=== PATIENT | male | born 1985 | race African-American/Black ===

== ENCOUNTER 2019-01-11 11:38 | Emergency (ER) | payer OTHER ==
[2019-01-11 12:27] LABS: Absolute Lymphocytes (CBC) 2.5 K/uL (0.7-4.9); Absolute Monocytes 0.5 K/uL (0.1-1.3); Basophils % 0.9 % (0-1.3); Eosinophils % 2.1 % (0-4.4); Hematocrit 42.2 % (39.6-49.0); Lymphocytes % 40.6 % (15.3-44.8); MPV 9.1 fL (7.6-11.3); RBC Red Blood Cell Count 5.13 M/uL (4.33-5.43)
[2019-01-11 12:28] LABS: Protime INR 1.06
[2019-01-11 12:41] LABS: ALT/SGPT 33 U/L (12-78); AST/SGOT 19 U/L (15-37); Albumin 3.1 g/dL (3.4-5.0); Alkaline Phosphatase 66 U/L (45-117); BUN Blood Urea Nitrogen 10 mg/dL (7-18); Bicarbonate 27 mmol/L (21-32); Bilirubin Direct 0.1 mg/dL (0-0.2); Bilirubin Total 0.3 mg/dL (0.2-1.0); Glucose Level 85 mg/dL (74-106); NT PRO-BNP 14 pg/mL (<125); Protein, Total 7.8 g/dL (6.4-8.2); Sodium Level 142 mmol/L (136-145); Troponin (Emerg Dept Use Only) < 0.02 ng/mL (0.0-0.045)
--- NOTE | 2019-01-11 12:51 | RAD REPORT ---
EXAM DESCRIPTION: RAD - Chest Single View - 01/11/2019 12:44 pm CLINICAL HISTORY: Chest pain COMPARISON: None. TECHNIQUE: AP portable chest image was obtained 1229 hours . FINDINGS: Lungs are clear. Heart and vasculature are normal. No measurable pleural effusion and no p neumothorax. No acute bony abnormality seen. No acute aortic findings suspected. Large body habitus a nd portable technique accentuate chest findings. IMPRESSION: No acute cardiopulmonary process.
--- NOTE | 2019-01-11 16:22 | ER ---
Nurse's Notes [facility] Name: Karl Adam Age: 33 yrs Sex: Male : 1985 Arrival Date: 01/11/2019 Time: 11:43 Bed 2 Private MD: Charles Castro T Diagnosis: Chest pain on breathing Presentation: 01/11 11:45 Presenting complaint: Patient states: intermittent chest pain that began today. Pt aa5 states "I was walking when the pain started". Transition of care: patient was not received from another setting of care. Onset of symptoms was January 11, 2019. Risk Assessment: Do you want to hurt yourself or someone else? Patient reports no desire to harm self or others. Initial Sepsis Screen: Does the patient meet any 2 criteria? No. Patient's initial sepsis screen is negative. Does the patient have a suspected source of infection? No. Patient's initial sepsis screen is negative. Care prior to arrival: None. 11:45 Method Of Arrival: Ambulatory aa5 11:45 Acuity: YURI 3 aa5 Historical: - Allergies: 11:46 No Known Allergies; aa5 - Home Meds: 11:46 None [Active]; aa5 - PMHx: 11:46 None; aa5 - PSHx: 11:46 None; aa5 - Immunization history:: Adult Immunizations unknown. - Social history:: Smoking status: Patient/guardian denies using tobacco. - Ebola Screening: : No symptoms or risks identified at this time. - Family history:: not pertinent. Screenin:01 Abuse screen: Denies threats or abuse. Nutritional screening: No deficits noted. tw2 Tuberculosis screening: No symptoms or risk factors identified. Fall Risk None identified. Assessment: 11:50 General: Appears in no apparent distress. obese, Behavior is calm, cooperative, tw2 appropriate for age. Pain: Denies pain. Pain does not radiate. Pain began 2-3 days ago. Neuro: Level of Consciousness is awake, alert, obeys commands, Oriented to person, place, time, situation. Cardiovascular: Heart tones S1 S2 Patient's skin is warm and dry. Respiratory: Airway is patent Respiratory effort is even, unlabored, Respiratory pattern is regular, symmetrical, Breath sounds are clear bilaterally. GI: No signs and/or symptoms were reported involving the gastrointestinal system. Abdomen is round non-distended, obese, Bowel sounds present X 4 quads. : No signs and/or symptoms were reported regarding the genitourinary system. EENT: No signs and/or symptoms were reported regarding the EENT system. Derm: No signs and/or symptoms reported regarding the dermatologic system. Musculoskeletal: Range of motion: intact in all extremities. 11:57 Reassessment: Dr. Miller at bedside at this time. tw2 12:30 Reassessment: Patient appears in no apparent distress at this time. No changes from tw2 previously documented assessment. Patient and/or family updated on plan of care and expected duration. Pain level reassessed. Patient is alert, oriented x 3, equal unlabored respirations, skin warm/dry/pink. 14:00 Reassessment: Patient appears in no apparent distress at this time. No changes from tw2 previously documented assessment. Patient and/or family updated on plan of care and expected duration. Pain level reassessed. Patient is alert, oriented x 3, equal unlabored respirations, skin warm/dry/pink. 15:07 Reassessment: Patient appears in no apparent distress at this time. No changes from tw2 previously documented assessment. Patient and/or family updated on plan of care and expected duration. Pain level reassessed. Patient is alert, oriented x 3, equal unlabored respirations, skin warm/dry/pink. 16:28 Reassessment: Patient appears in no apparent distress at this time. No changes from tw2 previously documented assessment. Patient and/or family updated on plan of care and expected duration. Pain level reassessed. Patient is alert, oriented x 3, equal unlabored respirations, skin warm/dry/pink. Vital Signs: 11:46 BP 149 / 87; Pulse 77; Resp 16 S; Temp 98.5(O); Pulse Ox 96% ; Weight 158.76 kg (R); aa5 Height 6 ft. 2 in. (187.96 cm) (R); Pain 3/10; 12:30 BP 111 / 48 Supine; Pulse 59; Resp 18; Pulse Ox 96% ; tw2 13:51 BP 117 / 58; Pulse 65; Resp 18; Pulse Ox 98% on R/A; tw2 15:06 BP 111 / 98; Pulse 64; Resp 18; Pulse Ox 97% on R/A; tw2 16:28 BP 128 / 70; Pulse 63; Resp 17; Pulse Ox 99% on R/A; tw2 11:46 Body Mass Index 44.94 (158.76 kg, 187.96 cm) aa5 ED Course: 11:43 Patient arrived in ED. mr 11:44 Charles Castro MD is Private Physician. mr 11:45 Arm band placed on. aa5 11:46 Triage completed. aa5 11:48 Placed in gown. Bed in low position. Side rails up X 1. surveillance system monitor on. Pulse ox tw2 on. NIBP on. 11:50 Yuridia Miller MD is Attending Physician. ma2 11:56 Kurtis Man, RN is Primary Nurse. jl7 11:57 Anna Mcgarry RN is Primary Nurse. tw2 12:02 EKG done, by waste management recycling technician. reviewed by Yuridia Miller MD. at1 12:15 Inserted saline lock: 20 gauge in left antecubital area, using aseptic technique. Blood tw2 collected. Patient maintains SpO2 saturation greater than 95% on room air. 12:20 X-ray completed. Portable x-ray completed in exam room. Patient tolerated procedure sw well. 12:46 XRAY Chest (1 view) In Process Unspecified. EDMS 16:33 No provider procedures requiring assistance completed. IV discontinued, intact, tw2 bleeding controlled, No redness/swelling at site. Pressure dressing applied. Administered Medications: No medications were administered Outcome: 16:21 Discharge ordered by . ma2 16:33 Discharged to home ambulatory, with significant other. tw2 16:33 Condition: stable 16:33 Discharge instructions given to patient, significant other, Instructed on discharge instructions, follow up and referral plans. no drinking with medication, no driving heavy equipment, medication usage, Demonstrated understanding of instructions, follow-up care, medications, Prescriptions given X 1. 16:33 Patient left the ED. tw2 Signatures: Dispatcher [employer] EDOK ColvinAshley mr PhillipsJanessa, RN RN aa5 Leana Ramirez, executive vice president of sales EKG Tat1 Lori Patel Tara, RN RN tw2 Kurtis Man RN RN jl7 Yuridia Miller MD MD ma2 Corrections: (The following items were deleted from the chart) 14:00 13:51 Pulse 65bpm; Resp 18bpm; Pulse Ox 98% RA; tw2 tw2
--- NOTE | 2019-01-11 16:22 | EDPHYS ---
Physician Documentation [facility] Name: Karl Adam Age: 33 yrs Sex: Male : 1985 Arrival Date: 01/11/2019 Time: 11:43 Bed 2 Private MD: Charles Castro T ED Physician Yuridia Miller HPI: 01/11 12:08 This 33 yrs old Black Male presents to ER via Ambulatory with complaints of Chest Pain. ma2 12:08 This 33 yrs old Black Male presents to ER via Ambulatory with complaints of Chest Pain. ma2 12:08 The patient or guardian reports chest pain that is located primarily in the substernal ma2 area. Associated signs and symptoms: Pertinent positives:. Associated signs and symptoms: Pertinent positives: chest pain, Pertinent negatives: diaphoresis, lower extremity pain, lightheadedness. The chest pain is described as aching. Duration: The patient or guardian reports a single episode, that is now resolved. Severity of pain: At its worst the pain was mild in the emergency department the pain has resolved and did so just prior to arrival. The patient has not experienced similar symptoms in the past. right sided chest pain 3 hrs ago that resolved with no intervention pain was stabbing worse with sob and cough . 12:14 . ma2 Historical: - Allergies: 11:46 No Known Allergies; aa5 - Home Meds: 11:46 None [Active]; aa5 - PMHx: 11:46 None; aa5 - PSHx: 11:46 None; aa5 - Immunization history:: Adult Immunizations unknown. - Social history:: Smoking status: Patient/guardian denies using tobacco. - Ebola Screening: : No symptoms or risks identified at this time. - Family history:: not pertinent. ROS: 12:14 Constitutional: Negative for fever, chills, and weight loss. ma2 12:14 Cardiovascular: Positive for chest pain, Negative for edema, orthopnea, palpitations. 12:14 All other systems are negative. Exam: 12:14 Constitutional: This is a well developed, well nourished patient who is awake, alert, ma2 and in no acute distress. 12:14 Cardiovascular: Regular rate and rhythm with a normal S1 and S2. No gallops, murmurs, or rubs. Normal PMI, no JVD. No pulse deficits. Respiratory: Lungs have equal breath sounds bilaterally, clear to auscultation and percussion. No rales, rhonchi or wheezes noted. No increased work of breathing, no retractions or nasal flaring. MS/ Extremity: Pulses equal, no cyanosis. Neurovascular intact. Full, normal range of motion. Neuro: Awake and alert, GCS 15, oriented to person, place, time, and situation. Cranial nerves II-XII grossly intact. Motor strength 5/5 in all extremities. Sensory grossly intact. Cerebellar exam normal. Normal gait. 12:14 Chest/axilla: Palpation: tenderness, that is mild, of the anterior aspect of right upper chest. Vital Signs: 11:46 BP 149 / 87; Pulse 77; Resp 16 S; Temp 98.5(O); Pulse Ox 96% ; Weight 158.76 kg (R); aa5 Height 6 ft. 2 in. (187.96 cm) (R); Pain 3/10; 12:30 BP 111 / 48 Supine; Pulse 59; Resp 18; Pulse Ox 96% ; tw2 13:51 BP 117 / 58; Pulse 65; Resp 18; Pulse Ox 98% on R/A; tw2 15:06 BP 111 / 98; Pulse 64; Resp 18; Pulse Ox 97% on R/A; tw2 16:28 BP 128 / 70; Pulse 63; Resp 17; Pulse Ox 99% on R/A; tw2 11:46 Body Mass Index 44.94 (158.76 kg, 187.96 cm) aa5 MDM: 11:50 Patient medically screened. ne2 12:14 HEART Score: History:. HEART Score: History: Slightly Suspicious (0), ECG: Normal (0), ma2 Age: < or = 45 years (0), Risk Factors: No Risk Factors Known (0), Troponin: < or = 1 x Normal Limit (0), Total Score =. DENNY Risk Score: TOTAL SCORE = 0. 16:20 Data reviewed: vital signs, nurses notes, lab test result(s). Counseling: I had a [facility] detailed discussion with the patient and/or guardian regarding: the historical points, exam findings, and any diagnostic results supporting the discharge/admit diagnosis, the presence of at least one elevated blood pressure reading (>120/80) during this emergency department visit, the need for outpatient follow up. 01/11 12:01 Order name: Basic Metabolic Panel; Complete Time: 13:44 ma2 01/11 12:01 Order name: CBC with Diff; Complete Time: 13:44 ma2 01/11 12:01 Order name: LFT's; Complete Time: 13:44 ma2 01/11 12:01 Order name: Magnesium; Complete Time: 13:44 ma2 01/11 12:01 Order name: NT PRO-BNP; Complete Time: 13:44 ma2 01/11 12:01 Order name: PT-INR; Complete Time: 13:44 ma2 01/11 12:01 Order name: Troponin (emerg Dept Use Only); Complete Time: 13:44 ma2 01/11 12:01 Order name: XRAY Chest (1 view); Complete Time: 13:44 ma2 01/11 12:01 Order name: EKG; Complete Time: 12:03 ne2 01/11 12:01 Order name: Cardiac monitoring; Complete Time: 12:18 ma2 01/11 12:01 Order name: EKG - Nurse/Tech; Complete Time: 12:21 ne2 01/11 12:01 Order name: IV Saline Lock; Complete Time: 12:21 ne2 01/11 14:58 Order name: Troponin (emerg Dept Use Only): repeat; Complete Time: 16:20 ma2 01/11 16:04 Order name: Urine Dipstick--Ancillary (enter results) eb 01/11 12:01 Order name: Labs collected and sent; Complete Time: 12:21 ne2 01/11 12:01 Order name: O2 Per Protocol; Complete Time: 12:21 ne2 01/11 12:01 Order name: O2 Sat Monitoring; Complete Time: 12:18 ma2 Administered Medications: No medications were administered Disposition: 01/11/19 16:21 Discharged to Home. Impression: Chest pain on breathing. - Condition is Stable. - Discharge Instructions: Chest Wall Pain. - Prescriptions for Tylenol- Codeine #3 300-30 mg Oral Tablet - take 2 tablet by ORAL route every 6 hours As needed; 30 tablet. - Work release form, Medication Reconciliation Form, Thank You Letter, Antibiotic Education, Prescription Opioid Use form. - Follow up: Private Physician; When: Tomorrow; Reason: Continuance of care. Signatures: Dispatcher [employer] EDRodrick Cordonri, RN RN aa5 Anna Mcgarry RN RN tw2 Yuridia Miller MD MD ma2 Corrections: (The following items were deleted from the chart) 16:33 16:21 01/11/2019 16:21 Discharged to Home. Impression: Chest pain on breathing. tw2 Condition is Stable. Forms are Work release form, Medication Reconciliation Form, Thank You Letter, Antibiotic Education, Prescription Opioid Use. Follow up: Private Physician; When: Tomorrow; Reason: Continuance of care. ma2
--- NOTE | 2019-01-11 17:27 | EKG ---
Test Date: 2019-01-11 Test Time: 11:58:50 Automobile Appraiser: J CARLOS MEASUREMENT RESULTS: Intervals: Rate: 66 RI: 176 QRSD: 92 QT: 384 QTc: 402 Jackson: P: 60 RI: 176 QRS: 49 T: 45 INTERPRETIVE STATEMENTS: Normal sinus rhythm Normal ECG No previous ECG available for comparison Electronically Signed On 01-11-19 17:26:32 MOSAIC LAYER by Tc Potts
[2019-01-11 17:37] LABS: Urine Blood NEGATIVE (NEG); Urine Glucose NEGATIVE (NEG); Urine Protein TRACE (NEG); Urine Specific Gravity 1.025 (1.005-1.030)
== END 2019-01-11 16:33 | disposition home or self-care (01) ==
LOC: ER 11:38
DX: R07.1 Chest pain on breathing (principal)
CPT/HCPCS: 36415; 71045; 80048; 80076; 81003; 83735; 83880; 84484; 85025; 85610; 93005; 99285

== ENCOUNTER 2021-11-19 01:18 | Emergency (ER) | payer OTHER ==
[2021-11-19 02:29] LABS: Absolute Lymphocytes (CBC) 2.7 K/uL (0.7-4.9); Basophils % 1.2 % (0-1.3); Lymphocytes % 25.9 % (15.3-44.8); MPV 8.7 fL (7.6-11.3)
[2021-11-19 02:30] LABS: Protime INR 1.06
[2021-11-19 02:44] LABS: ALT/SGPT 41 U/L (12-78); AST/SGOT 19 U/L (15-37); Albumin 2.5 g/dL (3.4-5.0); Alkaline Phosphatase 68 U/L (45-117); BUN Blood Urea Nitrogen 9 mg/dL (7-18); Bicarbonate 26 mmol/L (21-32); Bilirubin Direct < 0.1 mg/dL (0-0.2); Bilirubin Total 0.2 mg/dL (0.2-1.0); Glucose Level 118 mg/dL (74-106); Magnesium 1.9 mg/dL (1.8-2.4); NT PRO-BNP 16 pg/mL (<125); Potassium 3.6 mmol/L (3.5-5.1); Protein, Total 8.3 g/dL (6.4-8.2); Sodium Level 138 mmol/L (136-145); Troponin (Emerg Dept Use Only) < 0.02 ng/mL (0.0-0.045)
[2021-11-19 03:50] LABS: Urine Blood Negative (Negative); Urine Glucose Negative (Negative); Urine Protein Negative (Negative); Urine Specific Gravity >=1.030 (1.005-1.030)
--- NOTE | 2021-11-19 05:56 | ER ---
Nurse's Notes [facility] Name: Karl Adam Age: 36 yrs Sex: Male : 1985 Arrival Date: 11/19/2021 Time: 01:32 Bed 19 [facility] MD: Diagnosis: Arm pain, left, resolved;Jaw pain, resolved Presentation: 11/19 01:54 Chief complaint: Patient states: Left arm pain that began about 1500 today, states left lp1 jaw pain that began MEDICAL CLAIMS MANAGER. Coronavirus screen: At this time, the client does not indicate any symptoms associated with coronavirus-19. Ebola Screen: No symptoms or risks identified at this time. Risk Assessment: Do you want to hurt yourself or someone else? Patient reports no desire to harm self or others. 01:54 Method Of Arrival: Ambulatory lp1 01:54 Acuity: YURI 3 lp1 02:05 Initial Sepsis Screen: Does the patient meet any 2 criteria? No. Patient's initial sepsis screen is negative. Does the patient have a suspected source of infection? No. Patient's initial sepsis screen is negative. Onset of symptoms was November 18, 2021. Triage Assessment: 02:00 General: Appears in no apparent distress. Behavior is calm, cooperative. Pain: mk Complains of pain in abdomen Pain does not radiate. Pain currently is 5 out of 10 on a pain scale. Quality of pain is described as aching, Pain began suddenly, just ship captain Is continuous. Historical: - Allergies: 02:15 No Known Allergies; - Home Meds: 02:15 None [Active]; - PMHx: 02:15 None; - Immunization history:: Adult Immunizations up to date, Client reports receiving the 2nd dose of the Covid vaccine. - Social history:: Smoking status: Patient denies any tobacco usage or history of. Screenin:07 Abuse screen: Denies threats or abuse. Nutritional screening: No deficits noted. Tuberculosis screening: No symptoms or risk factors identified. Fall Risk No fall in past 12 months (0 pts). No secondary diagnosis (0 pts). No IV (0 pts). Ambulatory Aid- None/Bed Rest/Nurse Assist (0 pts). Gait- Normal/Bed Rest/Wheelchair (0 pts) Mental Status- Oriented to own ability (0 pts). Total Stanton Fall Scale indicates No Risk (0-24 pts). Assessment: 02:05 General: Appears in no apparent distress. distressed, Behavior is calm. Neuro: Level of mk Consciousness is awake, alert, obeys commands, Oriented to person, place, time, situation, Mechanism Assembler are equal bilaterally Moves all extremities. Gait is steady, Speech is normal, Facial symmetry appears normal, Pupils are PERRLA, Intact. Cardiovascular: Heart tones S1 S2 present Capillary refill < 3 seconds fingers toes Pulses are 2+ in right radial artery, right dorsalis pedis artery, left radial artery and left dorsalis pedis artery Rhythm is sinus rhythm. Cardiovascular: Chest pain is denied Parent/caregiver reports patient has had since states he had tingling in the L arm during the day, tonight having pain in the L neck and jaw. Respiratory: Airway is patent Trachea midline Respiratory effort is even, unlabored, Respiratory pattern is regular, symmetrical, Breath sounds are clear bilaterally. GI: Bowel sounds present X 4 quads. Abd is soft and non tender X 4 quads. : No signs and/or symptoms were reported regarding the genitourinary system. Derm: Skin is intact, is healthy with good turgor, Skin is dry, Skin is pink, warm \T\ dry. Skin temperature is warm. Musculoskeletal: Circulation, motion, and sensation intact. Capillary refill < 3 seconds, fingers. toes. 03:11 Reassessment: No changes from previously documented assessment. Patient and/or family mk updated on plan of care and expected duration. Pain level reassessed. Patient is alert, oriented x 3, equal unlabored respirations, skin warm/dry/pink. 04:09 Reassessment: Patient and/or family updated on plan of care and expected duration. Pain mk level reassessed. Patient is alert, oriented x 3, equal unlabored respirations, skin warm/dry/pink. Patient states feeling better. 05:10 Reassessment: No changes from previously documented assessment. Patient and/or family mk updated on plan of care and expected duration. Pain level reassessed. Patient is alert, oriented x 3, equal unlabored respirations, skin warm/dry/pink. 05:29 Respiratory: mk 06:10 Reassessment: Patient and/or family updated on plan of care and expected duration. Pain mk level reassessed. Patient is alert, oriented x 3, equal unlabored respirations, skin warm/dry/pink. Patient states feeling better. Pain: Complains of pain in face Pain currently is 2 out of 10 on a pain scale. Quality of pain is described as aching, Pain began gradually, Is continuous. Vital Signs: 02:05 BP 132 / 90; Pulse 81; Resp 18; Pulse Ox 95% on R/A; mk 03:10 Weight 204.12 kg; cs9 03:12 BP 141 / 83; Pulse 91; Resp 18; Temp 97.7; Pulse Ox 97% ; mk 04:12 BP 144 / 94; Pulse 83; Resp 21; Pulse Ox 97% on R/A; mk 05:15 BP 132 / 90; Pulse 85; Resp 23; Pulse Ox 96% on R/A; mk 06:15 BP 147 / 90; Pulse 85; Resp 18; Temp 98.5; Pulse Ox 98% ; mk Vitals: 06:15 Cardiac Rhythm Assessment Regular. mk Deep Coma Score: 02:05 Eye Response: spontaneous(4). Verbal Response: oriented(5). Motor Response: obeys mk commands(6). Total: 15. 03:12 Eye Response: spontaneous(4). Verbal Response: oriented(5). Motor Response: obeys mk commands(6). Total: 15. 04:14 Eye Response: spontaneous(4). Verbal Response: oriented(5). Motor Response: obeys mk commands(6). Total: 15. 05:15 Eye Response: spontaneous(4). Verbal Response: oriented(5). Motor Response: obeys mk commands(6). Total: 15. 06:15 Eye Response: spontaneous(4). Verbal Response: oriented(5). Motor Response: obeys mk commands(6). Total: 15. ED Course: 01:32 Patient arrived in ED. ja2 01:38 Finesse Arias MD is Attending Physician. mh7 01:55 Triage completed. lp1 01:58 Madison Navarro, ZACHERY is Primary Nurse. mk 02:10 EKG completed in triage. Results shown to MD. mk 02:10 Patient has correct armband on for positive identification. Placed in gown. Bed in low mk position. Call light in reach. Side rails up X 1. quality assurance monitor final on. Pulse ox on. NIBP on. 02:16 XRAY Chest (1 view) In Process Unspecified. EDMS 02:29 Basic Metabolic Panel Sent. mk 02:29 CBC with Diff Sent. mk 02:29 LFT's Sent. mk 02:29 Magnesium Sent. mk 02:29 NT PRO-BNP Sent. mk 02:29 PT-INR Sent. mk 02:29 Troponin (emerg Dept Use Only) Sent. mk 02:30 Inserted saline lock: 20 gauge in left antecubital area, using aseptic technique. mk 04:15 Arm band placed on. mk 04:28 No provider procedures requiring assistance completed. mk 05:16 Troponin (emerg Dept Use Only) Sent. mk 06:15 IV discontinued, intact, bleeding controlled, No redness/swelling at site. Pressure mk dressing applied. Administered Medications: No medications were administered Outcome: 05:55 Discharge ordered by MD. santiago 06:49 Discharged to home mk 06:49 Condition: good 06:49 Discharge instructions given to patient. 06:53 Patient left the ED. mk Signatures: Dispatcher [employer] EDEmmy Fernandez, RN RN lp1 Finesse Arias MD MD 7 Verito Calderon Christine 9 Madison Navarro, RN RN erica Corrections: (The following items were deleted from the chart) 03:12 02:00 Pain: Complains of pain in abdomen Pain does not radiate. Pain currently is 5 out mk of 10 on a pain scale. Quality of pain is described as aching, Pain began suddenly, just ship captain Is continuous, 06:50 04:15 EKG completed in triage. Results shown to MD. maldonado 06:50 04:15 EKG completed in triage. Results shown to . erica maldonado
--- NOTE | 2021-11-19 05:56 | EDPHYS ---
Physician Documentation [facility] Name: Karl Adam Age: 36 yrs Sex: Male : 1985 Arrival Date: 11/19/2021 Time: 01:32 Bed 19 Private MD: ED Physician Finesse Arias HPI: 11/19 02:02 This 36 yrs old Black Male presents to ER via Ambulatory with complaints of Jaw Pain, mh7 LEFT ARM PAIN. 02:02 The patient or guardian complains of pain, that is acute. The complaints affect the mh7 Left arm. Context: The problem was sustained at home, resulted from unknown cause. Onset: The symptoms/episode began/occurred yesterday, at 15:00. Treatment prior to arrival includes: no previous treatment. Modifying factors: The symptoms are alleviated by nothing. the symptoms are aggravated by nothing. Associated signs and symptoms: Pertinent positives: numbness, pain, tingling, Pertinent negatives: decreased range of motion, deformity, erythema, fever, nausea, swelling, vomiting, warmth, weakness. Severity of symptoms: At their worst the symptoms were mild, yesterday, in the emergency department the symptoms have resolved, Yesterday. Patient states that he had a left arm pain yesterday that resolved after a while. He complains of left jaw pain that started tonight while he was laying down. He denies any headache, chest pain, abdominal pain, fever, cough, shortness of breath, nausea, vomiting, diarrhea, dizziness, or weakness. He states he had a Covid booster shot in the left arm 2 days ago.. Historical: - Allergies: 02:15 No Known Allergies; - Home Meds: 02:15 None [Active]; - PMHx: 02:15 None; - Immunization history:: Adult Immunizations up to date, Client reports receiving the 2nd dose of the Covid vaccine. - Social history:: Smoking status: Patient denies any tobacco usage or history of. ROS: 02:02 Constitutional: Negative for fever, chills, and weight loss, Eyes: Negative for injury, mh7 pain, redness, and discharge, ENT: Negative for injury, pain, and discharge, Neck: Negative for injury, pain, and swelling, Cardiovascular: Negative for chest pain, palpitations, and edema, Respiratory: Negative for shortness of breath, cough, wheezing, and pleuritic chest pain, Abdomen/GI: Negative for abdominal pain, nausea, vomiting, diarrhea, and constipation, Back: Negative for injury and pain, : Negative for injury, bleeding, discharge, and swelling, Skin: Negative for injury, rash, and discoloration, Psych: Negative for depression, anxiety, suicide ideation, homicidal ideation, and hallucinations, Allergy/Immunology: Negative for hives, rash, and allergies, Endocrine: Negative for neck swelling, polydipsia, polyuria, polyphagia, and marked weight changes, Hematologic/Lymphatic: Negative for swollen nodes, abnormal bleeding, and unusual bruising. Exam: 02:02 Constitutional: This is a well developed, well nourished patient who is awake, alert, mh7 and in no acute distress. 02:02 Eyes: Pupils equal round and reactive to light, extra-ocular motions intact. Lids and lashes normal. Conjunctiva and sclera are non-icteric and not injected. Cornea within normal limits. Periorbital areas with no swelling, redness, or edema. ENT: Nares patent. No nasal discharge, no septal abnormalities noted. Tympanic membranes are normal and external auditory canals are clear. Oropharynx with no redness, swelling, or masses, exudates, or evidence of obstruction, uvula midline. Mucous membranes moist. Neck: Trachea midline, no thyromegaly or masses palpated, and no cervical lymphadenopathy. Supple, full range of motion without nuchal rigidity, or vertebral point tenderness. No Meningismus. Chest/axilla: Normal chest wall appearance and motion. Nontender with no deformity. No lesions are appreciated. Cardiovascular: Regular rate and rhythm with a normal S1 and S2. No gallops, murmurs, or rubs. Normal PMI, no JVD. No pulse deficits. Respiratory: Lungs have equal breath sounds bilaterally, clear to auscultation and percussion. No rales, rhonchi or wheezes noted. No increased work of breathing, no retractions or nasal flaring. Abdomen/GI: Soft, non-tender, with normal bowel sounds. No distension or tympany. No guarding or rebound. No evidence of tenderness throughout. Back: No spinal tenderness. No costovertebral tenderness. Full range of motion. Skin: Warm, dry with normal turgor. Normal color with no rashes, no lesions, and no evidence of cellulitis. MS/ Extremity: Pulses equal, no cyanosis. Neurovascular intact. Full, normal range of motion. Neuro: Awake and alert, GCS 15, oriented to person, place, time, and situation. Cranial nerves II-XII grossly intact. Motor strength 5/5 in all extremities. Sensory grossly intact. Cerebellar exam normal. Normal gait. Psych: Awake, alert, with orientation to person, place and time. Behavior, mood, and affect are within normal limits. 02:02 Head/face: Noted is tenderness, that is mild, of the left jaw. Vital Signs: 02:05 BP 132 / 90; Pulse 81; Resp 18; Pulse Ox 95% on R/A; mk 03:10 Weight 204.12 kg; cs9 03:12 BP 141 / 83; Pulse 91; Resp 18; Temp 97.7; Pulse Ox 97% ; mk 04:12 BP 144 / 94; Pulse 83; Resp 21; Pulse Ox 97% on R/A; mk 05:15 BP 132 / 90; Pulse 85; Resp 23; Pulse Ox 96% on R/A; mk 06:15 BP 147 / 90; Pulse 85; Resp 18; Temp 98.5; Pulse Ox 98% ; mk Deep Coma Score: 02:05 Eye Response: spontaneous(4). Verbal Response: oriented(5). Motor Response: obeys mk commands(6). Total: 15. 03:12 Eye Response: spontaneous(4). Verbal Response: oriented(5). Motor Response: obeys mk commands(6). Total: 15. 04:14 Eye Response: spontaneous(4). Verbal Response: oriented(5). Motor Response: obeys mk commands(6). Total: 15. 05:15 Eye Response: spontaneous(4). Verbal Response: oriented(5). Motor Response: obeys mk commands(6). Total: 15. 06:15 Eye Response: spontaneous(4). Verbal Response: oriented(5). Motor Response: obeys mk commands(6). Total: 15. MDM: 05:52 Differential diagnosis: abrasion, tendonitis, Acute coronary syndrome, musculoskeletal mh7 pain. Data reviewed: vital signs, nurses notes, lab test result(s), cardiac enzymes, CBC, electrolytes, EKG, radiologic studies, plain films. Data interpreted: Pulse oximetry: on room air is 98 %. Interpretation: normal. Counseling: I had a detailed discussion with the patient and/or guardian regarding: the historical points, exam findings, and any diagnostic results supporting the discharge/admit diagnosis, lab results, radiology results, the need for outpatient follow up, to return to the emergency department if symptoms worsen or persist or if there are any questions or concerns that arise at home. Response to treatment: the patient's symptoms have resolved after treatment, the patient's blood pressure is in an acceptable range, mental status has returned to baseline, the patient no longer shows bradycardia, the patient is not short of breath, the patient is not tachycardic, the patient's pain is gone, the patient's temperature has normalized, the patient is now symptom free, patient is well hydrated. 05:[address] [facility] 11/19 01:54 Order name: Basic Metabolic Panel; Complete Time: 02:50 [facility] 11/19 01:54 Order name: CBC with Diff; Complete Time: 02:50 [facility] 11/19 01:54 Order name: LFT's; Complete Time: 02:50 [facility] 11/19 01:54 Order name: Magnesium; Complete Time: 02:50 [facility] 11/19 01:54 Order name: NT PRO-BNP; Complete Time: 02:50 [facility] 11/19 01:54 Order name: PT-INR; Complete Time: 02:50 [facility] 11/19 01:54 Order name: Troponin (emerg Dept Use Only); Complete Time: 02:50 [facility] 11/19 01:54 Order name: XRAY Chest (1 view) [facility] 11/19 01:54 Order name: EKG; Complete Time: 01:55 [facility] 11/19 01:54 Order name: Cardiac monitoring; Complete Time: 02:27 [facility] 11/19 01:54 Order name: EKG - Nurse/Tech; Complete Time: 02:27 [facility] 11/19 03:49 Order name: Urine Dipstick-Ancillary; Complete Time: 03:54 [facility] 11/19 05:05 Order name: Troponin (emerg Dept Use Only); Complete Time: 05:46 [facility] 11/19 01:54 Order name: IV Saline Lock; Complete Time: 02:27 [facility] 11/19 01:54 Order name: Labs collected and sent; Complete Time: 02: [facility] 11/19 01:54 Order name: O2 Per Protocol; Complete Time: 02: [facility] 11/19 01:54 Order name: O2 Sat Monitoring; Complete Time: 02: [facility] 11/19 01:54 Order name: Urine Dipstick-Ancillary (obtain specimen); Complete Time: 04:07 [facility] Administered Medications: No medications were administered Disposition Summary: 11/19/21 05:55 Discharge Ordered Location: Home [facility] Problem: new [facility] Symptoms: are resolved [facility] Condition: Stable [facility] Diagnosis - Arm pain, left, resolved 7 - Jaw pain, resolved [facility] Followup: [facility] - With: Private Physician - When: 1 - 2 days - Reason: Worsening of condition, Recheck today's complaints, Continuance of care, Re-evaluation by your physician Discharge Instructions: - Discharge Summary Sheet [facility] - Musculoskeletal Pain [facility] Forms: - Medication Reconciliation Form [facility] - Thank You Letter [facility] - Antibiotic Education [facility] - Prescription Opioid Use [facility] Signatures: Dispatcher [employer] Finesse Abernathy MD MD [facility] Madison Navarro RN RN
[2021-11-19 07:23] VITALS: BP 147/90; TEMP 98.5; O2SAT 98
--- NOTE | 2021-11-19 08:00 | RAD REPORT ---
EXAM DESCRIPTION: RAD - Chest Single View - 11/19/2021 2:16 am CLINICAL HISTORY: CONGESTION COMPARISON: Chest Single View dated 01/11/2019 FINDINGS: Lines: None. Lungs: Low lung volumes which accentuates the pulmonary vasculature. Peribronchial cuffing. Pleural: No significant pleural effusions or pneumothorax. Cardiac: The heart size is within normal limits. Bones: No acute fractures. Other: IMPRESSION: Prominence of the pulmonary vasculature consistent with at least pulmonary vascular chito estion, if not edema.
--- NOTE | 2021-11-19 08:09 | EKG ---
Test Date: 2021-11-19 Test Time: 02:00:07 Brim Ironer Hand: MEASUREMENT RESULTS: Intervals: Rate: 76 [place]: 188 QRSD: 90 QT: 382 QTc: 429 [place]: P: 64 [place]: 188 QRS: 45 T: 19 INTERPRETIVE STATEMENTS: Normal sinus rhythm Normal ECG Compared to ECG 01/11/2019 11:58:50 No significant changes Electronically Signed On 11-19-21 08:08:32 CONTRACT OFFICER by Eris Barron
--- NOTE | 2021-11-19 08:09 | EKG ---
Test Date: 2021-11-19 Test Time: 02:01:23 Manager Dialysis: MEASUREMENT RESULTS: Intervals: Rate: 78 IA: 186 QRSD: 94 QT: 388 QTc: 442 [place]: P: 64 IA: 186 QRS: 51 T: 36 INTERPRETIVE STATEMENTS: Normal sinus rhythm Normal ECG Compared to ECG 01/11/2019 11:58:50 No significant changes Electronically Signed On 11-19-21 08:08:07 WOOD GRAINER by Eris Barron
== END 2021-11-19 06:53 | disposition home or self-care (01) ==
LOC: ER 01:18
DX: M79.602 Pain in left arm (principal)
CPT/HCPCS: 36415; 71045; 80048; 80076; 81003; 83735; 83880; 84484; 85025; 85610; 93005; 99284

== ENCOUNTER 2025-07-22 21:14 | Emergency (ER) | payer OTHER, SELFPAY ==
--- NOTE | 2025-07-22 22:19 | ER ---
Nurse's Notes [facility] Name: Karl Adam Age: 39 yrs Sex: Male : 1985 Arrival Date: 07/22/2025 Time: 21:14 Bed 13 Private MD: Diagnosis: Elevated blood-pressure reading, without diagnosis of hypertension Presentation: 07/22 21:29 Chief complaint: Patient states: has been monitoring his blood pressure and tonight it me1 was 201/105. Denies any symptoms but verbalized concern because it was so high. Coronavirus screen: Vaccine status: Patient reports receiving the 2nd dose of the covid vaccine. Ebola Screen: No symptoms or risks identified at this time. Initial Sepsis Screen: Does the patient meet any 2 criteria? No. Patient's initial sepsis screen is negative. Does the patient have a suspected source of infection? No. Patient's initial sepsis screen is negative. Risk Assessment: Do you want to hurt yourself or someone else? Patient reports no desire to harm self or others. Onset of symptoms is unknown. 21:29 Method Of Arrival: Ambulatory [facility] 21:29 Acuity: YURI 3 me1 Triage Assessment: 22:32 General: Appears in no apparent distress. comfortable, Behavior is calm, cooperative. kd4 Historical: - Allergies: 21:33 No Known Allergies; me1 - PMHx: 21:33 prediabetic; me1 - PSHx: 21:33 None; me1 - Immunization history:: Adult Immunizations up to date. - Infectious Disease History:: Denies. - Social history:: Smoking status: Patient denies any tobacco usage or history of. Screenin:21 [facility] ED Fall Risk Assessment (Adult) History of falling in the last 3 months, kd4 including since admission No falls in past 3 months (0 pts) Confusion or Disorientation No (0 pts) Intoxicated or Sedated No (0 pts) Impaired Gait No (0 pts) Mobility Assist Device Used No (0 pt) Altered Elimination No (0 pt) Score/Fall Risk Level 0 - 2 = Low Risk. Abuse screen: Denies threats or abuse. Nutritional screening: No deficits noted. Tuberculosis screening: No symptoms or risk factors identified. Assessment: 22:21 General: patient c/o of bp at home reading SBP in 200' s', patient denies hx of htn and kd4 not on any med, on arrival , bp reading better than at home .Denies n/v,dizziness,chest pain,sob,ABBOTT. Pain: Denies pain. Neuro: No deficits noted. Respiratory: Denies cough, shortness of breath. Vital Signs: 21:29 BP 176 / 102; Pulse 84; Resp 20; Temp 97.8; Pulse Ox 95% ; Weight 163.29 kg; Height 6 me1 ft. 2 in. ; Pain 0/10; 22:27 BP 158 / 69; Pulse 78; Resp 18; Temp 98.1(O); Pulse Ox 95% on R/A; Pain 0/10; kd4 21:29 Body Mass Index 46.22 (163.29 kg, 187.96 cm) me1 21:29 Pain Scale: Adult me1 22:27 Pain Scale: Adult kd4 Deep Coma Score: 22:21 Eye Response: spontaneous(4). Motor Response: obeys commands(6). Verbal Response: kd4 oriented(5). Total: 15. ED Course: 21:15 Patient arrived in ED. jj6 21:17 Vahid Muñiz PA-C is PHCP. cp 21:17 Vahid Montes De Oca MD is Attending Physician. cp 21:33 Triage completed. me1 21:33 Arm band placed on Patient placed in an exam room. me1 22:02 EKG done, by ED staff, reviewed by Vahid Muñiz PA-C. sa1 22:21 Delroy Nobles, RN is Primary Nurse. kd4 22:21 Patient has correct armband on for positive identification. Bed in low position. Side kd4 rails up X2. Provided Education on: d/C INSTRUCTION. Client placed on continuous cardiac and pulse oximetry monitoring. NIBP monitoring applied. budget coordinator on. Pulse ox on. NIBP on. 22:21 No provider procedures requiring assistance completed. Patient did not have IV access kd4 during this emergency room visit. Administered Medications: No medications were administered Medication: 22:21 VIS not applicable for this client. kd4 Outcome: 22:18 Discharge ordered by . cp 22:32 Discharged to home ambulatory, with family, kd4 22:32 Condition: good 22:32 Discharge instructions given to patient, Demonstrated understanding of 22:33 Patient left the ED. kd4 Signatures: Vahid Muñiz PA-C PA-C cp Jeffries, Jennifer jj6 Angie Albrecht, RN RN me1 Delroy Nobles RN RN kd4 Sultan Mehreen [facility]
--- NOTE | 2025-07-22 22:19 | EDPHYS ---
Physician Documentation [facility] Name: Karl Adam Age: 39 yrs Sex: Male : 1985 Arrival Date: 07/22/2025 Time: 21:14 Bed 13 Private MD: Vahid Hamm HPI: 07/22 21:45 This 39 yrs old Black Male presents to ER via Ambulatory with complaints of High Blood cp Pressure. 21:45 The patient has elevated blood pressure and discovered this at home, with a home cp device. Onset: The symptoms/episode began/occurred today. Associated signs and symptoms: The patient has no apparent associated signs or symptoms. 21:45 Patient reports systolic pressure of 200 at home tonight. cp Historical: - Allergies: 21:33 No Known Allergies; me1 - PMHx: 21:33 prediabetic; me1 - PSHx: 21:33 None; me1 - Immunization history:: Adult Immunizations up to date. - Infectious Disease History:: Denies. - Social history:: Smoking status: Patient denies any tobacco usage or history of. ROS: 21:50 Constitutional: Negative for body aches, chills, fever, poor PO intake, cp 21:50 Cardiovascular: Negative for chest pain, cp 21:50 Eyes: Negative for injury, pain, redness, and discharge, cp 21:50 Respiratory: Negative for cough, shortness of breath, wheezing, 21:50 Abdomen/GI: Negative for abdominal pain, nausea, vomiting, and diarrhea, 21:50 Neuro: Negative for altered mental status, dizziness, headache, numbness, syncope, weakness, 21:50 All other systems are negative, Exam: 21:55 Constitutional: The patient appears in no acute distress, alert, awake, comfortable, cp non-diaphoretic, non-toxic, well developed, well nourished, obese, 21:55 Head/Face: Normocephalic, atraumatic. cp 21:55 Eyes: Periorbital structures: appear normal, Conjunctiva: normal, no exudate, no cp injection, Sclera: no appreciated abnormality, Lids and lashes: appear normal, bilaterally, 21:55 ENT: External ear(s): are unremarkable, Nose: is normal, Mouth: Lips: moist, Oral mucosa: moist, Posterior pharynx: Airway: no evidence of obstruction, patent, 21:55 Chest/axilla: Inspection: normal, 21:55 Cardiovascular: Rate: normal, Rhythm: regular, 21:55 Respiratory: the patient does not display signs of respiratory distress, Respirations: normal, no use of accessory muscles, no retractions, labored breathing, is not present, Breath sounds: are clear throughout, no decreased breath sounds, no stridor, no wheezing, 21:55 Abdomen/GI: Exam negative for discomfort, distension, guarding, Inspection: obese 21:55 Back: pain, is absent, ROM is normal, 21:55 Neuro: Orientation: to person, place \T\ time. Mentation: is normal, Cerebellar function: cp is grossly normal, Motor: moves all fours, strength is normal, Sensation: is normal, 22:05 ECG was reviewed by the Attending Physician. cp Vital Signs: 21:29 BP 176 / 102; Pulse 84; Resp 20; Temp 97.8; Pulse Ox 95% ; Weight 163.29 kg; Height 6 me1 ft. 2 in. ; Pain 0/10; 22:27 BP 158 / 69; Pulse 78; Resp 18; Temp 98.1(O); Pulse Ox 95% on R/A; Pain 0/10; kd4 21:29 Body Mass Index 46.22 (163.29 kg, 187.96 cm) me1 21:29 Pain Scale: Adult me1 22:27 Pain Scale: Adult kd4 [place] Coma Score: 22:21 Eye Response: spontaneous(4). Motor Response: obeys commands(6). Verbal Response: kd4 oriented(5). Total: 15. MDM: 21:32 Medical Screening Exam initiated cp 22:17 Data reviewed: vital signs, nurses notes, and as a result, I will discharge patient. cp 22:17 Differential diagnosis: hypertensive crisis, Malignant HTN, CVA, intracerebral cp hemorrhage. Care significantly affected by the following chronic conditions: Obesity. Counseling: I had a detailed discussion with the patient and/or guardian regarding the historical points, exam findings, and any diagnostic results supporting the discharge/admit diagnosis, the presence of at least one elevated blood pressure reading (>120/80) during this emergency department visit, the need for outpatient follow up, for definitive care, a family practitioner, to return to the emergency department if symptoms worsen or persist or if there are any questions or concerns that arise at home. 07/22 21:43 Order name: EKG; Complete Time: :43 cp 07/22 21:43 Order name: EKG - Nurse/Tech; Complete Time: 22:04 cp EC:05 Rate is 83 beats/min. Rhythm is regular. FL interval is normal. QRS interval is normal. cp QT interval is normal. T waves are Inverted in lead aVR. Interpreted by me. Reviewed by me. Administered Medications: No medications were administered Disposition: :59 Co-signature as Attending Physician, Vahid Montes De Oca MD I agree with the assessment and [facility] plan of care. Disposition Summary: 07/22/25 22:18 Discharge Ordered Notes: Location: Home cp Problem: new cp Symptoms: have improved cp Condition: Stable cp Diagnosis - Elevated blood-pressure reading, without diagnosis of hypertension cp Followup: cp - With: Private Physician - When: 2 - 3 days - Reason: Recheck today's complaints Discharge Instructions: - Discharge Summary Sheet cp - How to Take Your Blood Pressure, [id number] cp - Aspirin and Your Heart cp - DASH Eating Plan cp - Form - Blood Pressure Record Sheet cp Forms: - Medication Reconciliation Form cp - Antibiotic Education cp - Prescription Opioid Use cp - Patient Portal Instructions cp - Leadership Thank You Letter cp Signatures: Vahid Montes De Oca MD MD cha Page, Corey, PA-C PA-C Angie Strickland, RN RN me1
[2025-07-22 22:52] VITALS: O2SAT 95
[2025-07-22 22:54] VITALS: BP 158/69; TEMP 98.1
== END 2025-07-22 22:33 | disposition home or self-care (01) ==
LOC: ER 21:14
DX: R03.0 Elevated blood-pressure reading, without diagnosis of hypertension (principal)
CPT/HCPCS: 93005; 99284